=== PATIENT | female | born 1995 | race Caucasian/White ===

== ENCOUNTER 2023-05-29 08:02 | Observation (INO) | payer OTHER, SELFPAY ==
[2023-05-29] VITALS (11 sets, daily range): BP systolic 124–144; BP diastolic 82–100; PULSE 86–114; RESP 16; TEMP 36.2; O2SAT 100; BMI 20.9
--- NOTE | 2023-05-29 08:02 | OBADM ---
This patient, Taryn Stuart, admitted to the OB room [facility] for observation for possible rupture of membranes. Patient/family oriented to hospital policies and general routines including ID bracelet, bed and alarms, visiting hours, pain management, procedures, bathroom and other care routines, personal items, smoking policy, room service/diet, and visiting hours. Patient/Family are encouraged to report perceived risks to care and to ask questions if they do not understand what they are told or what they should do.
--- NOTE | 2023-05-29 08:05 | PC.NURSE ---
pt reports that she had a gush of fluid around 0430 this morning when she was in bed and then felt some more when she got to work this AM.
--- NOTE | 2023-05-29 08:27 | PC.NURSE ---
Dr. Herrera notified of this pt arrival to the unit. Pt receives care from Leisa ALVAREZ at [facility]. aware ROM plus positive. Dr. Herrera in the hospital and will come down to see the pt.
--- NOTE | 2023-05-29 08:36 | P.HP_ITS ---
H&P: HPI History of Present Illness Date/Time: 05/29/23 08:36 Chief Complaint: leakage of fluid Narrative: Taryn is a 27 year old at 23w0d by LMP?who presents with leakage of fluid since 429. She reports gush of fluid with continued?trickle that has continued since then. She reports no?contractions after leakage began.?She denies abdominal pain, fevers, or chills.?She reports good movement and denies vaginal bleeding. ?Her is otherwise uncomplicated with normal labs and limited anatomic survey per patient. Records unavailable at this time.?Her primary OB is Leisa Love CNM. Review of Systems Review of Systems: All systems reviewed & are unremarkable except as noted in HPI and below Meds Home Medications and Allergies Allergies Allergy/AdvReac Type Severity Reaction Status Date / Time No Known Allergies Allergy Verified 05/29/23 08:58 Exam Const: General: comfortable and no acute distress HENMT: Mouth: Yes moist mucous membranes Eyes: General: appearance normal, both eyes and all related structures Resp: Effort & Inspection: normal respiratory effort Cardio: Rate: regular rate GI: GI Palp: Yes Soft to palpation Other: nontender, gravid : External Female Exam: normal external appearance Other: no vaginal bleeding, no lesions; cervix visually closed, +pooling and valsalva Skin: General skin exam: normal color and no rashes or lesions noted Neuro: Speech: normal speech Sensory Exam: normal sensation Extrem: General: normal to inspection Psych: Mental Status: mental status grossly normal H&P: Results Imaging US - abdomen: My impression: single fetus in complete breech position, 567.6g (51.5%), AC 53% Assessment and Plan Assessment and plan (1) premature rupture of membranes (PPROM) with unknown onset of labor: Code(s): O42.919 - premature rupture of membranes, unspecified as to length of time between rupture and onset of labor, unspecified trimester Status: Acute Assessment and Plan: PPROM?at 23w0d ?-?Diagnosed?by ROMplus, pooling, valsalva ?- afebrile, VSS, abdomen nontender, no leukocytosis - cervix visually closed - no signs of abruption, infection, or labor at this time - 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 Shin who accepts transfer to [place] - GBS pending - labs unknown
--- NOTE | 2023-05-29 08:53 | PC.NURSE ---
Dr. Herrera at the bedside performing bedside ultrasound and Pelvic exam.
[2023-05-29] MEDS: BETAMETHASONE SOD PHOS/ACETATE 30 MG/5 ML VIAL 12 MG IM (09:21)
[2023-05-29] MEDS: AMPICILLIN 2 GM/NS 100 ML 2 GM/100 ML BAG IVPB (09:24)
[2023-05-29] MEDS: LACTATED RINGERS 1,000 ML 125 ML IV CONT (09:26)
[2023-05-29] MEDS: MAGNESIUM SULF 4 GM/WATER100ML 4 GM/100 ML BAG IVPB (09:28)
[2023-05-29] MEDS: AZITHROMYCIN 250 MG TABLET 1000 MG PO (09:38)
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
[2023-05-29 09:48] LABS: Basophils Percent Auto 0.3 % (0.2-1.2); Eosinophils Percent Auto 0.5 % (0-4.4); Hematocrit 39.1 % (37.0-47.0); Hemoglobin 12.9 g/dL (12.0-15.0); Immature Granulocyte Absolute 0.04 K/mm3 (0.00-0.031); Immature Granulocyte Percent A 0.5 % (0-0.5); Lymphocytes Absolute Auto 1.22 K/mm3 (0.9-3.2); Lymphocytes Percent Auto 15.8 % (18.3-44.2); Mean Corpuscular Hemoglobin 30.3 pg (26-34); Mean Corpuscular Volume 91.8 fl (80-100); Monocytes Absolute Auto 0.7 K/mm3 (0.1-0.6); Monocytes Percent Auto 8.7 % (2.6-8.5); Neutrophils Absolute Auto 5.7 K/mm3 (1.3-6.7); Neutrophils Percent Auto 74.2 % (45.5-73.1); Platelet Count Result 170 k/mm3 (150-375); Red Blood Count 4.26 M/mm3 (4.2-5.4); Red Cell Distribution Width 13.4 % (11.5-14.5); White Blood Count 7.7 K/mm3 (4.5-10.0)
[2023-05-29] MEDS: MAGNESIUM SULF 20GM/WATER500ML 500 ML 50 MG IV CONT (09:59)
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
--- NOTE | 2023-05-29 10:58 | PC.NURSE ---
Darline HAGAN from [facility] here with transport to transfer the pt to [place].
== END 2023-05-29 10:58 | disposition short-term general hospital (02) ==
LOC: ANHOBPP 08:32
PROVIDERS: Admitting Provider Obstetrics & Gynecology; Visit Provider Obstetrics & Gynecology
DX: O42.912 Preterm premature rupture of membranes, unspecified as to length of time between rupture and onset of labor, second trimester (principal); Z3A.23 23 weeks gestation of pregnancy
CPT/HCPCS: 36415; 84112; 85025; 87081; 96372; 96374; 96375; 96376; A9270; G0378; G0379; J0290; J0702; J3475; J7120

== ENCOUNTER 2024-01-06 16:32 | Emergency (ER) | payer OTHER, SELFPAY ==
[2024-01-06 16:35] VITALS: BP 105/73; PULSE 89; RESP 16; TEMP 36.5; O2SAT 100
--- NOTE | 2024-01-06 16:39 | ECG_ITS ---
Test Date: 2024-01-06 16:54:52 Measurements Intervals [place] Rate: 70 P: 67 [place]: 136 QRS: 51 QRSD: 96 T: 19 QT: 390 QTc: 423 Interpretive Statements SINUS RHYTHM INCOMPLETE RIGHT BUNDLE BRANCH BLOCK [90+ ms QRS DURATION, TERMINAL R IN V1/V2, 40+ ms S IN I/aVL/V4/V5/V6] NONSPECIFIC T-WAVE ABNORMALITY No previous ECG available for comparison Electronically Signed On 01-07-2024 14:32:40 CDT by Tal Matthews M.D.
[2024-01-06 16:50] LABS: BEDSIDEPREGUCG Negative
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
[2024-01-06 16:55] LABS: Basophils Percent Auto 0.3 % (0.2-1.2); Eosinophils Absolute Auto 0.1 K/mm3 (0-0.3); Eosinophils Percent Auto 0.8 % (0-4.4); Hematocrit 37.9 % (37.0-47.0); Hemoglobin 12.6 g/dL (12.0-15.0); Immature Granulocyte Absolute 0.03 K/mm3 (0.00-0.031); Immature Granulocyte Percent A 0.4 % (0-0.5); Lymphocytes Absolute Auto 1.27 K/mm3 (0.9-3.2); Lymphocytes Percent Auto 16.5 % (18.3-44.2); Mean Corpuscular HGB Conc 33.2 g/dl (32-36); Mean Corpuscular Hemoglobin 30.4 pg (26-34); Mean Corpuscular Volume 91.5 fl (80-100); Monocytes Absolute Auto 0.5 K/mm3 (0.1-0.6); Monocytes Percent Auto 6.6 % (2.6-8.5); Neutrophils Absolute Auto 5.8 K/mm3 (1.3-6.7); Neutrophils Percent Auto 75.4 % (45.5-73.1); Platelet Count Result 187 k/mm3 (150-375); Red Blood Count 4.14 M/mm3 (4.2-5.4); Red Cell Distribution Width 12.8 % (11.5-14.5); White Blood Count 7.7 K/mm3 (4.5-10.0)
[2024-01-06 17:07] LABS: Alanine Aminotransferase 11 U/L (6-35); Albumin Level 4.7 g/dL (3.5-5.1); Alkaline Phosphatase 69 U/L (38-126); Anion Gap 12 mmol/L (4-12); Aspartate Amino Transferase 21 U/L (14-36); Bilirubin,Total 0.4 mg/dL (0.2-1.3); Blood Urea Nitrogen 17 mg/dL (7-17); Calcium 9.1 mg/dL (8.4-10.2); Carbon Dioxide 25 mmol/L (22-30); Chloride 102 mmol/L (98-107); Estimated CRCL calculation 87 ml/min; Estimated Glomerular Filt Rate > 60; Glucose 112 mg/dL (65-110); Lipase 87 U/L (23-300); Potassium 3.8 mmol/L (3.4-5.0); Sodium 139 mmol/L (137-145)
[2024-01-06] MEDS: diphenhydrAMINE HCl INJ 50 MG/ML VIAL 25 MG IV PUSH (17:09)
[2024-01-06] MEDS: SODIUM CHLORIDE 0.9% IV 1,000 ML 999 ML IV CONT (17:09)
[2024-01-06] MEDS: KETOROLAC 15 MG/ML VIAL (*BKC) IV PUSH (17:10)
[2024-01-06] MEDS: PROCHLORPERAZINE EDISYLATE 10 MG/2 ML VIAL IV PUSH (17:11)
[2024-01-06 17:15] LABS: Add Urine Microscopic? YES; Appearance Urine Cloudy (Clear); Bacteria Urine None Seen /hpf; Bilirubin Urine 1+ (Negative); Blood Urine Negative (Negative); Color Urine Dark Yellow (Yellow); Glucose Urine UA Negative (Negative); Ketones Urine Negative (Negative); Leukocyte Esterase Ur Negative LEU/UL (Negative); Need Manual Microscopic Reviewed; Nitrate Urine Negative (Negative); Protein Urine 2+ mg/dL (Negative); RBC Urine 0-2 /hpf (0-2); Squamous Epithelial Cell Urine Few /hpf (Few)
[2024-01-06 17:31] VITALS: BP 109/75; PULSE 66; RESP 18; O2SAT 100
[2024-01-06 18:02] VITALS: BP 109/80; PULSE 81; RESP 16; O2SAT 99
== END 2024-01-06 18:14 | disposition home or self-care (01) ==
PROVIDERS: Emergency Provider Emergency Medicine
DX: G43.909 Migraine, unspecified, not intractable, without status migrainosus (principal); R11.2 Nausea with vomiting, unspecified; I45.10 Unspecified right bundle-branch block
CPT/HCPCS: 36415; 80053; 81001; 81025; 83690; 85025; 87086; 93005; 96361; 96374; 96375; 99284; J0780; J1200; J1885; J7030